=== PATIENT | female | born 1995 | race Caucasian/White ===

== ENCOUNTER 2017-09-19 06:56 | Emergency (ER) | payer SELFPAY ==
[~2017-09-19] VITALS: Ht 162.6 cm; Wt 90.9 kg
[2017-09-19 06:58] VITALS: TEMP 98.5
[2017-09-19 07:20] LABS: COLLECTION METHOD CLEAN CATCH
[2017-09-19] MEDS ORDERED: SYNTHROID0.1 MG/TAB PO (07:21)
[2017-09-19 07:23] LABS: BASO % 0.3 % (0.0-2.0); EOS # 0.1 (0.0-0.7); EOS % 0.7 % (0-4.0); GRAN # 5.5 (1.4-6.5); GRAN % 56.8 % (42.2-75.2); HEMOGLOBIN 12.5 g/dl (12.5-16.0); LYMPH # 3.5 (1.2-3.4); MEAN CELL VOLUME 87 fl (80.0-100.0); MEAN CORPUSCULAR HEMOGLOBIN 30 pg (27.0-31.0); MEAN CORPUSCULAR HGB CONC 35 g/dl (33.0-37.0); MEAN PLATELET VOLUME 11.5 fl (7.4-10.4); MONO # 0.6 (0.1-0.6); PLATELET COUNT 269 K/mm3 (130-400); RED BLOOD COUNT 4.15 M/mm3 (4.10-5.30); REDCELL DISTRIBUTION WIDTH-CV 13.2 % (11.5-14.5)
[2017-09-19 07:36] LABS: MUCOUS Present /lpf; PH 5 (5-8); SQUAMOUS EPITHELIAL >50 /hpf; URINE APPEARANCE Cloudy; URINE BACTERIA Occasional /hpf; URINE BILIRUBIN Negative (NEGATIVE); URINE BLOOD 1+ (NEGATIVE); URINE COLOR Amber; URINE GLUCOSE Negative (NEGATIVE); URINE KETONE Negative (NEGATIVE); URINE LEUKOCYTE ESTERASE 3+ (NEGATIVE); URINE NITRATE Negative (NEGATIVE); URINE PROTEIN(semi-quant) 2+ (NEGATIVE)
[2017-09-19 07:51] LABS: ALANINE AMINOTRANSFERASE 20 U/L (9-52); ALBUMIN 4.2 gm/dL (3.5-5.0); ALKALINE PHOSPHATASE 111 U/L (50-136); ANION GAP 15 mmol/L (7-16); AST,SGOT 40 U/L (15-37); BILIRUBIN,TOTAL 0.4 mg/dL (0.0-1.0); BLOOD UREA NITROGEN 7 mg/dL (7-17); CALCIUM 9.4 mg/dL (8.4-10.2); CARBON DIOXIDE 26 mmol/L (22-30); CHLORIDE 100 mmol/L (98-107); CREATININE, serum 0.67 mg/dL (0.52-1.25); GLUCOSE 120 mg/dL (74-106); LIPASE 79 U/L (23-300); SODIUM 141 mmol/L (137-145)
[2017-09-19 07:52] LABS: C-REACTIVE PROTEIN < 0.5 mg/dL (0.0-0.9)
[2017-09-19 07:54] LABS: POTASSIUM 2.8 mmol/L (3.4-5.0)
[2017-09-19 09:47] LABS: COLLECTION METHOD CLEAN CATCH
[2017-09-19 10:02] LABS: MUCOUS Present /lpf; PH 5 (5-8); URINE APPEARANCE Turbid; URINE BACTERIA Many /hpf; URINE BILIRUBIN Negative (NEGATIVE); URINE BLOOD Negative (NEGATIVE); URINE GLUCOSE Negative (NEGATIVE); URINE KETONE Negative (NEGATIVE); URINE LEUKOCYTE ESTERASE 2+ (NEGATIVE); URINE NITRATE Negative (NEGATIVE); URINE PROTEIN(semi-quant) 1+ (NEGATIVE); URINE RBC None Seen /hpf; URINE UROBILINOGEN Negative (NEGATIVE)
[2017-09-19 10:04] LABS: URINE COLOR Yellow
[2017-09-19 13:25] VITALS: BP 129/84; PULSE 84
== END 2017-09-19 13:28 | disposition home or self-care (01) ==
LOC: COL.ER 06:56
PROVIDERS: Physician Assistant
DX: K80.20 Calculus of gallbladder without cholecystitis without obstruction (principal); E03.9 Hypothyroidism, unspecified
CPT/HCPCS: J1170; J1885; J2405; J3480; J7030

== ENCOUNTER 2017-12-08 00:51 | Emergency (ER) | payer SELFPAY ==
[~2017-12-08] VITALS: Ht 162.6 cm; Wt 81.8 kg
[~2017-12-08 00:51] MED LIST: SYNTHROID0.1 MG/TAB PO
[2017-12-08 00:53] VITALS: BP 129/91; PULSE 84; TEMP 98.9
[2017-12-08] MEDS ORDERED: AMOXICILLIN 8751 TAB PO (01:11)
== END 2017-12-08 01:46 | disposition home or self-care (01) ==
LOC: COL.ER 00:51
DX: K02.9 Dental caries, unspecified (principal)

== ENCOUNTER 2018-01-08 17:57 | Emergency (ER) | payer SELFPAY ==
[~2018-01-08] VITALS: Ht 162.6 cm; Wt 82.5 kg
[~2018-01-08 17:57] MED LIST changes: +AMOXICILLIN 8751 TAB PO
[2018-01-08 17:59] VITALS: BP 136/97; TEMP 98.2
[2018-01-08] MEDS ORDERED: CLARITIN 1010 MG/TAB PO (18:35)
[2018-01-08 19:57] VITALS: PULSE 98
[2018-01-08] MEDS ORDERED: DOXYCYCLINE 10100 MG PO (20:03)
== END 2018-01-08 19:58 | disposition home or self-care (01) ==
LOC: COL.ER 17:57
DX: B27.90 Infectious mononucleosis, unspecified without complication (principal); J01.90 Acute sinusitis, unspecified

== ENCOUNTER 2018-01-09 04:04 | Emergency (ER) | payer SELFPAY ==
[~2018-01-09] VITALS: Ht 162.6 cm; Wt 82.3 kg
[~2018-01-09 04:04] MED LIST changes: +CLARITIN 1010 MG/TAB PO; +DOXYCYCLINE 10100 MG PO
[2018-01-09 04:14] VITALS: TEMP 98.5
[2018-01-09 06:55] VITALS: BP 130/86; PULSE 92
== END 2018-01-09 06:55 | disposition home or self-care (01) ==
LOC: COL.ER 04:04
DX: B27.90 Infectious mononucleosis, unspecified without complication (principal); J32.9 Chronic sinusitis, unspecified; E03.9 Hypothyroidism, unspecified
CPT/HCPCS: J1885

== ENCOUNTER 2018-03-26 06:00 | Emergency (ER) | payer OTHER ==
[~2018-03-26] VITALS: Ht 162.6 cm; Wt 83.2 kg
[2018-03-26 06:06] VITALS: BP 124/83; TEMP 97.8
[2018-03-26 06:58] LABS: COLLECTION METHOD CLEAN CATCH
[2018-03-26 07:02] LABS: BASO # 0.1 (0.0-0.2); BASO % 0.5 % (0.0-2.0); EOS # 0.1 (0.0-0.7); EOS % 0.9 % (0-4.0); GRAN # 5.8 (1.4-6.5); GRAN % 55.2 % (42.2-75.2); HEMATOCRIT 39.1 % (37.0-47.0); LYMPH # 3.8 (1.2-3.4); LYMPH % 36.4 % (20.0-51.0); MEAN CELL VOLUME 89 fl (80.0-100.0); MEAN CORPUSCULAR HEMOGLOBIN 30 pg (27.0-31.0); MEAN CORPUSCULAR HGB CONC 33 g/dl (33.0-37.0); MEAN PLATELET VOLUME 10.2 fl (7.4-10.4); MONO # 0.7 (0.1-0.6); MONO % 6.7 % (1.7-9.3); PLATELET COUNT 292 K/mm3 (130-400); RED BLOOD COUNT 4.39 M/mm3 (4.10-5.30); REDCELL DISTRIBUTION WIDTH-CV 12.4 % (11.5-14.5)
[2018-03-26 07:06] LABS: MUCOUS Present /lpf; PH 5 (5-8); URINE APPEARANCE Hazy; URINE BACTERIA Rare /hpf; URINE BILIRUBIN Negative (NEGATIVE); URINE BLOOD Negative (NEGATIVE); URINE COLOR Yellow; URINE GLUCOSE Negative (NEGATIVE); URINE KETONE Negative (NEGATIVE); URINE LEUKOCYTE ESTERASE Trace (NEGATIVE); URINE NITRATE Negative (NEGATIVE); URINE PROTEIN(semi-quant) Negative (NEGATIVE); URINE RBC 0-2 /hpf; URINE UROBILINOGEN Negative (NEGATIVE)
[2018-03-26 07:19] LABS: ALANINE AMINOTRANSFERASE 17 U/L (9-52); ALBUMIN 4.3 gm/dL (3.5-5.0); ALKALINE PHOSPHATASE 76 U/L (50-136); ANION GAP 5 mmol/L (7-16); AST,SGOT 19 U/L (15-37); BILIRUBIN,TOTAL 0.4 mg/dL (0.0-1.0); BLOOD UREA NITROGEN 13 mg/dL (7-17); C-REACTIVE PROTEIN < 0.5 mg/dL (0.0-0.9); CALCIUM 9.6 mg/dL (8.4-10.2); CARBON DIOXIDE 30 mmol/L (22-30); CHLORIDE 104 mmol/L (98-107); CREATININE, serum 0.75 mg/dL (0.52-1.25); GLUCOSE 115 mg/dL (74-106); LIPASE 91 U/L (23-300); POTASSIUM 3.8 mmol/L (3.4-5.0); SODIUM 140 mmol/L (137-145); TOTAL PROTEIN 7.7 gm/dL (6.4-8.2)
[2018-03-26 08:44] VITALS: PULSE 108
== END 2018-03-26 08:45 | disposition home or self-care (01) ==
LOC: COL.ER 06:00
PROVIDERS: Emergency Medicine
DX: K80.50 Calculus of bile duct without cholangitis or cholecystitis without obstruction (principal)
CPT/HCPCS: J0780; J1170; J7030

== ENCOUNTER → 2018-04-10 | Outpatient (CLI) | payer OTHER | LOC: COL.LAB 13:34 | DX: E03.9 Hypothyroidism, unspecified (principal) ==

== ENCOUNTER 2018-04-17 06:20 | Emergency (ER) | payer OTHER ==
[~2018-04-17] VITALS: Ht 162.6 cm; Wt 81.8 kg
[2018-04-17 06:26] VITALS: TEMP 98.8
[2018-04-17 07:01] LABS: COLLECTION METHOD CLEAN CATCH
[2018-04-17 07:11] LABS: BASO # 0.1 (0.0-0.2); BASO % 0.4 % (0.0-2.0); EOS # 0.1 (0.0-0.7); EOS % 0.4 % (0-4.0); GRAN # 7.6 (1.4-6.5); GRAN % 62.1 % (42.2-75.2); HEMATOCRIT 39.6 % (37.0-47.0); HEMOGLOBIN 13.4 g/dl (12.5-16.0); LYMPH # 3.9 (1.2-3.4); LYMPH % 31.9 % (20.0-51.0); MEAN CELL VOLUME 87 fl (80.0-100.0); MEAN CORPUSCULAR HEMOGLOBIN 30 pg (27.0-31.0); MEAN CORPUSCULAR HGB CONC 34 g/dl (33.0-37.0); MEAN PLATELET VOLUME 10.5 fl (7.4-10.4); MONO # 0.6 (0.1-0.6); PLATELET COUNT 316 K/mm3 (130-400); RED BLOOD COUNT 4.53 M/mm3 (4.10-5.30); REDCELL DISTRIBUTION WIDTH-CV 12.2 % (11.5-14.5)
[2018-04-17 07:11] LABS: MUCOUS Present /lpf; PH 5 (5-8); URINE APPEARANCE Hazy; URINE BACTERIA Rare /hpf; URINE BILIRUBIN Negative (NEGATIVE); URINE BLOOD 2+ (NEGATIVE); URINE COLOR Yellow; URINE GLUCOSE Negative (NEGATIVE); URINE KETONE Negative (NEGATIVE); URINE LEUKOCYTE ESTERASE Trace (NEGATIVE); URINE NITRATE Negative (NEGATIVE); URINE PROTEIN(semi-quant) Negative (NEGATIVE); URINE UROBILINOGEN Negative (NEGATIVE)
[2018-04-17 07:23] LABS: ALANINE AMINOTRANSFERASE 12 U/L (9-52); ALBUMIN 4.5 gm/dL (3.5-5.0); ALKALINE PHOSPHATASE 78 U/L (50-136); ANION GAP 9 mmol/L (7-16); AST,SGOT 22 U/L (15-37); BILIRUBIN,TOTAL 0.4 mg/dL (0.0-1.0); BLOOD UREA NITROGEN 13 mg/dL (7-17); CALCIUM 9.4 mg/dL (8.4-10.2); CARBON DIOXIDE 25 mmol/L (22-30); CHLORIDE 105 mmol/L (98-107); CREATININE, serum 0.72 mg/dL (0.52-1.25); GLUCOSE 108 mg/dL (74-106); LIPASE 101 U/L (23-300); POTASSIUM 3.9 mmol/L (3.4-5.0); SODIUM 139 mmol/L (137-145); TOTAL PROTEIN 8.2 gm/dL (6.4-8.2)
[2018-04-17 07:24] LABS: C-REACTIVE PROTEIN < 0.5 mg/dL (0.0-0.9)
[2018-04-17 08:04] VITALS: BP 108/60; PULSE 86
== END 2018-04-17 08:05 | disposition home or self-care (01) ==
LOC: COL.ER 06:20
PROVIDERS: Emergency Medicine
DX: K80.50 Calculus of bile duct without cholangitis or cholecystitis without obstruction (principal)
CPT/HCPCS: J7030

== ENCOUNTER → 2018-05-22 | Outpatient (CLI) | payer OTHER | LOC: ZCOL.LAB 13:39 → ZLAB.ENT 13:39 | DX: E03.9 Hypothyroidism, unspecified (principal) ==

== ENCOUNTER → 2018-12-11 | Outpatient (CLI) | payer SELFPAY | LOC: COL.LAB 13:00 | DX: E03.9 Hypothyroidism, unspecified (principal) ==